=== PATIENT | female | born 1935 | race Caucasian/White ===

== ENCOUNTER 2024-01-27 11:37 | Inpatient (IN) | payer MEDICARE ==
[~2024-01-27] VITALS: Ht 162.5 cm; Wt 58.6 kg
[~2024-01-27 11:37] MED LIST: ASPI-COR81 M1 PO; BUSPAR5 MG PO; COUMADIN2.5 M1 PO; CRESTOR10 MG PO; Cimetidine400 MG PO; LANOXIN0.125 MG PO; LOPRESSOR50 MG PO; WARFARIN SODIUM3 MG PO
[2024-01-27] MEDS ORDERED: Ondansetron Hydrochloride 4 MG/2 ML VIAL IV ONE (11:45)
[2024-01-27] MEDS ORDERED: MORPHINE Sulfate 2 MG/ML SYR IV ONE (11:45)
[2024-01-27 12:03] LABS: BASO # 0.1 10*3/uL (0.0-0.1); BASO % 0.8 % (0.0-1.0); EOS # 0.3 10*3/uL (0.0-0.4); EOS % 5.4 % (1.0-4.0); HEMATOCRIT 36.5 % (37.0-47.0); LYMPH # 2.2 10*3/uL (1.3-4.4); LYMPH % 36.9 % (27.0-41.0); MEAN CELL VOLUME 90.3 fl (81.0-99.0); MEAN CORPUSCULAR HGB 28.7 pg (27.0-31.0); MEAN CORPUSCULAR HGB CONC 31.8 g/dl (33.0-37.0); MEAN PLATELET VOLUME 11.4 fl (9.6-12.3); MONO # 0.5 10*3/uL (0.1-1.0); MONO % 7.6 % (3.0-9.0); NEUT # 2.9 10*3/uL (2.3-7.9); NEUT % 48.8 % (47.0-73.0); PLATELET COUNT AUTOMATED 213 10*3/uL (130-400); RED BLOOD COUNT 4.04 10*6/uL (4.10-5.10); RED CELL DISTRI WIDTH 13.2 % (0-14.5); WHITE BLOOD COUNT 5.9 10*3/uL (4.8-10.8)
[2024-01-27 12:05] VITALS: BP 179/77
[2024-01-27 12:21] LABS: BUN 7 mg/dl (9-23); CHLORIDE 106 mmol/L (98-107); POTASSIUM 4.4 mmol/L (3.4-5.1)
[2024-01-27] MEDS ORDERED: Coumadin2 MG PO (13:36)
[2024-01-27] MEDS ORDERED: CITALOPRAM10 MG PO (13:37)
[2024-01-27] MEDS ORDERED: ASPIRIN81 M1 PO (13:37)
[2024-01-27] MEDS ORDERED: GINKGO BILOBA120 M2 PO (13:38)
[2024-01-27] MEDS ORDERED: PRAVASTATIN SOD40 MG PO (13:38)
[2024-01-27] MEDS ORDERED: TOPROL XL100 MG PO (13:38)
[2024-01-27] MEDS ORDERED: TRAMADOL HCL50 MG PO (13:39)
[2024-01-27 13:46] VITALS: BP 180/80
[2024-01-27] MEDS ORDERED: NITROGLYCERIN 1 IN PACKET T SCH ×2 (16:41→18:00)
[2024-01-27 16:44] VITALS: BP 146/60
[2024-01-27] MEDS ORDERED: amLODIPine besylate 5 MG TAB PO SCH (16:45)
[2024-01-27] MEDS ORDERED: Enoxaparin Sodium 60 MG/0.6 ML SYR SC SCH (18:00)
[2024-01-27 18:21] VITALS: BP 96/36
[2024-01-27 20:04] VITALS: BP 112/38
[2024-01-27 22:20] VITALS: BP 135/61
[2024-01-28 06:34] LABS: BASO # 0.1 10*3/uL (0.0-0.1); EOS # 0.4 10*3/uL (0.0-0.4); EOS % 6.2 % (1.0-4.0); HEMATOCRIT 36.1 % (37.0-47.0); LYMPH # 2.9 10*3/uL (1.3-4.4); LYMPH % 40.4 % (27.0-41.0); MEAN CELL VOLUME 88.7 fl (81.0-99.0); MEAN CORPUSCULAR HGB CONC 32.7 g/dl (33.0-37.0); MEAN PLATELET VOLUME 11.7 fl (9.6-12.3); MONO # 0.6 10*3/uL (0.1-1.0); MONO % 7.7 % (3.0-9.0); NEUT # 3.2 10*3/uL (2.3-7.9); NEUT % 44.4 % (47.0-73.0); PLATELET COUNT AUTOMATED 207 10*3/uL (130-400); RED BLOOD COUNT 4.07 10*6/uL (4.10-5.10); RED CELL DISTRI WIDTH 13.2 % (0-14.5); WHITE BLOOD COUNT 7.1 10*3/uL (4.8-10.8)
[2024-01-28 06:54] LABS: BUN 9 mg/dl (9-23); CHLORIDE 105 mmol/L (98-107); POTASSIUM 4.3 mmol/L (3.4-5.1)
[2024-01-28] MEDS ORDERED: METOPROLOL SUCCINATE XR 100 MG TAB PO SCH (10:00)
[2024-01-28] MEDS ORDERED: CITALOPRAM 20 MG TAB PO SCH (10:00)
[2024-01-28] MEDS ORDERED: ISOSORBIDE MONONITRATE 30 MG TAB PO SCH (10:00)
[2024-01-28] MEDS ORDERED: Enoxaparin Sodium 40 MG/0.4 ML SYR SC SCH (10:00)
[2024-01-28] MEDS ORDERED: WARFARIN SODIUM 2 MG TAB PO SCH (10:00)
[2024-01-28] MEDS ORDERED: ATORVASTATIN CALCIUM 40 MG TABLET PO SCH (10:00)
[2024-01-28] MEDS ORDERED: ATORVASTATIN CALCIUM 10 MG TAB PO SCH (10:00)
[2024-01-28 12:00] VITALS: BP 116/57
[2024-01-28] MEDS ORDERED: Technetium Tc 99M Tetrofosmi 0.23 MG KIT IJ SCH (13:55)
[2024-01-28] MEDS ORDERED: WARFARIN SODIUM 1 MG TAB PO SCH (18:00)
[2024-01-28] MEDS ORDERED: WARFARIN SODIUM 2.5 MG TAB PO SCH (18:00)
[2024-01-28 20:00] VITALS: BP 133/40
[2024-01-29] VITALS: BP 160/64
[2024-01-29] MEDS ORDERED: Regadenoson 0.4 MG/5 ML SYR IV ONE (06:48)
[2024-01-29 08:00] VITALS: BP 129/56
[2024-01-29] MEDS ORDERED: AMLODIPINE BESYL5 MG PO (08:31)
[2024-01-29] MEDS ORDERED: IMDUR SA30 MG PO (08:31)
[2024-01-29] MEDS ORDERED: ELIQUIS5 M1 PO (08:37)
[2024-01-29 12:00] VITALS: BP 149/58
== END 2024-01-29 16:20 | disposition home or self-care (01) | DRG 313 ==
LOC: ED 11:37 → 4E 13:14 → EDHOLD 13:14 → 4E 21:24
PROVIDERS: Emergency Medicine; ADMIT Internal Medicine; ATTEND Internal Medicine
PROC: 4A02XM4 Measurement of Cardiac Total Activity, External Approach (ICD-10-PCS; principal; 2024-01-29)
PROC: 3E073KZ Introduction of Other Diagnostic Substance into Coronary Artery, Percutaneous Approach (ICD-10-PCS; 2024-01-29)
DX: R07.89 Other chest pain (principal); I48.21 Permanent atrial fibrillation; I25.10 Atherosclerotic heart disease of native coronary artery without angina pectoris; G89.29 Other chronic pain; M35.3 Polymyalgia rheumatica; I10 Essential (primary) hypertension; E11.9 Type 2 diabetes mellitus without complications; I48.0 Paroxysmal atrial fibrillation; R55 Syncope and collapse; K58.9 Irritable bowel syndrome, unspecified; Z90.710 Acquired absence of both cervix and uterus; Z80.9 Family history of malignant neoplasm, unspecified; Z91.041 Radiographic dye allergy status; Z79.01 Long term (current) use of anticoagulants; Z95.1 Presence of aortocoronary bypass graft

== ENCOUNTER 2024-07-29 12:57 | Emergency (ER) | payer MEDICARE ==
[~2024-07-29] VITALS: Ht 157.4 cm; Wt 56.7 kg
[~2024-07-29 12:57] MED LIST changes: +AMLODIPINE BESYL5 MG PO; +ASPIRIN81 M1 PO; +CITALOPRAM10 MG PO; +Coumadin2 MG PO; +ELIQUIS5 M1 PO; +GINKGO BILOBA120 M2 PO; +IMDUR SA30 MG PO; +PRAVASTATIN SOD40 MG PO; +TOPROL XL100 MG PO; +TRAMADOL HCL50 MG PO
[2024-07-29] MEDS ORDERED: VITAMIN A3000 MC2 PO (13:20)
[2024-07-29 13:26] LABS: BASO # 0.1 10*3/uL (0.0-0.1); BASO % 0.7 % (0.0-1.0); EOS # 0.4 10*3/uL (0.0-0.4); EOS % 4.3 % (1.0-4.0); HEMATOCRIT 34.2 % (37.0-47.0); MEAN CELL VOLUME 91.7 fl (81.0-99.0); MEAN CORPUSCULAR HGB 28.4 pg (27.0-31.0); MEAN PLATELET VOLUME 10.8 fl (9.6-12.3); MONO # 0.5 10*3/uL (0.1-1.0); MONO % 6.7 % (3.0-9.0); NEUT # 4.7 10*3/uL (2.3-7.9); PLATELET COUNT AUTOMATED 227 10*3/uL (130-400); RED BLOOD COUNT 3.73 10*6/uL (4.10-5.10); RED CELL DISTRI WIDTH 13.7 % (0-14.5); WHITE BLOOD COUNT 8.1 10*3/uL (4.8-10.8)
[2024-07-29 13:45] LABS: BUN 12 mg/dl (9-23); CHLORIDE 104 mmol/L (98-107); POTASSIUM 3.9 mmol/L (3.4-5.1)
== END 2024-07-29 16:34 | disposition home or self-care (01) ==
LOC: ED 12:57
PROVIDERS: Nurse Practitioner Family
DX: K62.5 Hemorrhage of anus and rectum (principal); I25.10 Atherosclerotic heart disease of native coronary artery without angina pectoris; R10.30 Lower abdominal pain, unspecified; Z91.041 Radiographic dye allergy status; Z90.710 Acquired absence of both cervix and uterus; Z98.890 Other specified postprocedural states

== ENCOUNTER → 2024-09-20 | Outpatient (CLI) | payer MEDICARE ==
[~2024-09-20] MED LIST changes: +VITAMIN A3000 MC2 PO
[2024-09-20 17:55] LABS: BASO # 0.1 10*3/uL (0.0-0.1); BASO % 0.6 % (0.0-1.0); EOS # 0.4 10*3/uL (0.0-0.4); EOS % 4.1 % (1.0-4.0); MEAN CELL VOLUME 89.8 fl (81.0-99.0); MEAN CORPUSCULAR HGB 27.9 pg (27.0-31.0); MEAN CORPUSCULAR HGB CONC 31.1 g/dl (33.0-37.0); MEAN PLATELET VOLUME 11.3 fl (9.6-12.3); MONO # 0.7 10*3/uL (0.1-1.0); MONO % 8.1 % (3.0-9.0); NEUT # 4.5 10*3/uL (2.3-7.9); NEUT % 51.5 % (47.0-73.0); PLATELET COUNT AUTOMATED 230 10*3/uL (130-400); RED BLOOD COUNT 4.12 10*6/uL (4.10-5.10); RED CELL DISTRI WIDTH 13.2 % (0-14.5); WHITE BLOOD COUNT 8.7 10*3/uL (4.8-10.8)
[2024-09-20 18:24] LABS: ALKALINE PHOSPHATASE 109 U/L (46-116); BUN 14 mg/dl (9-23); CHLORIDE 101 mmol/L (98-107); CHOLESTEROL 134 mg/dL (<200); FREE T4 1.09 ng/dl (0.89-1.76); LDL CHOLESTEROL 39 mg/dL (9-159); POTASSIUM 3.8 mmol/L (3.4-5.1); SGPT/ALT 12 U/L (5-49); TOTAL PROTEIN 7.4 gm/dL (6.0-8.0); TRIGLYCERIDES 114 mg/dl (<150)
[2024-09-20 18:25] LABS: VITAMIN D, 25-HYDROXY 57.3 ng/mL (30-100)
== END | disposition home or self-care (01) ==
LOC: LAB 17:37
PROVIDERS: ATTEND Internal Medicine
DX: I10 Essential (primary) hypertension (principal); R79.82 Elevated C-reactive protein (CRP); E78.2 Mixed hyperlipidemia; R53.83 Other fatigue; E53.9 Vitamin B deficiency, unspecified; E55.9 Vitamin D deficiency, unspecified

== ENCOUNTER → 2024-10-23 | Outpatient (CLI) | payer MEDICARE | END | disposition home or self-care (01) | LOC: CT 15:58 | PROVIDERS: ATTEND Internal Medicine | DX: K57.30 Diverticulosis of large intestine without perforation or abscess without bleeding (principal); N28.1 Cyst of kidney, acquired; N94.89 Other specified conditions associated with female genital organs and menstrual cycle; R10.84 Generalized abdominal pain; K51.40 Inflammatory polyps of colon without complications; I25.10 Atherosclerotic heart disease of native coronary artery without angina pectoris; I51.7 Cardiomegaly ==